=== PATIENT | male | born 1965 ===

== ENCOUNTER 2021-01-17 07:27 | Day surgery (SDC) | payer OTHER ==
[~2021-01-17 07:27] MED LIST: LOSARTA
== END 2021-01-17 13:55 | disposition home or self-care (01) ==
LOC: CIR.AMB 07:27
PROVIDERS: ATTEND Orthopaedic Surgery
DX: S46.122A Laceration of muscle, fascia and tendon of long head of biceps, left arm, initial encounter (principal); Z20.822 Contact with and (suspected) exposure to COVID-19